=== PATIENT | male | born 1925 | race Caucasian/White ===

== ENCOUNTER 2016-04-29 20:47 | Emergency (ER) | payer MEDICAID, MEDICARE, OTHER ==
[2016-04-29 21:15] VITALS: BP 153/71
[2016-04-29] MEDS ORDERED: Lidocaine 1% with EPINEPHrine 1:100,000 20 ML MDV INJECT ONE (21:27)
--- NOTE | 2016-04-29 21:32 | EDM.PDOC ---
ED HPI HEAD INJURY - General Chief Complaint: Head Injury Stated Complaint: FELL IN [id number] [place] Time Seen by Provider: 04/29/16 21:03 Source of Information: Reports: Patient, Other ([facility]) History Limitations: Reports: No limitations - History of Present Illness INITIAL COMMENTS - FREE TEXT/NARRATIVE: The patient fell in the [employer] parking lot today. He has a laceration to his forehead. He had no LOC. He has no neck pain, back pain, chest pain, abdominal pain, hip pain or wrist pain. His tetanus is up to date. He is on plavix. Timing/Duration: Reports: Hour(s): (about 8pm tonight) Location: Reports: frontal (mid to left) Quality: Reports: sharp Severity: moderate Place of Occurrence: other ([employer]. He was walking around) Worsens with: none Associated Symptoms: Reports: headache. Denies: nausea/vomiting, loss of consciousness, dizziness - Related Data Allergies/ADRs: Allergies Allergy/AdvReac Type Severity Reaction Status Date / Time No Known Allergies Allergy Verified 04/29/16 20:58 Home Meds: Home Meds Aspirin [Halfprin] 81 mg PO DAILY 03/12/14 [History] Multivitamin [Multiple Vitamins] 1 each PO DAILY 03/12/14 [History] Simvastatin [Zocor] 10 mg PO DAILY 03/12/14 [History] Vitamin E Blend. 1 tab PO DAILY 03/12/14 [History] Abscorbic Acid 500 mg PO DAILY 01/26/16 [History] Clopidogrel [Plavix] 75 mg PO DAILY 01/26/16 [History] Fish Oil/DHA/EPA [Fish Oil 1,200 MG] 1 cap PO DAILY 01/26/16 [History] Iron 65 mg PO DAILY 01/26/16 [History] Tamsulosin [Flomax] 0.4 mg PO DAILY 03/11/16 [History] FLUoxetine [PROzac] 20 mg PO DAILY 04/01/16 [History] Metoprolol Succinate [Toprol XL 50mg] 25 mg PO DAILY 04/01/16 [History] Past Medical History HEENT History: Reports: Impaired vision Cardiovascular History: Reports: Hypertension Respiratory History: Reports: Other (see below) Other Respiratory History: pleural effusions x 2 in 2014 Genitourinary History: Reports: Other (see below) Other Genitourinary History: 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 Other Oncologic History: 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 - Past Surgical History Other HEENT Surgeries/Procedures: Dentures placement Other GI Surgeries/Procedures: Stomach surgery in 1950, unkown etiology Social & Family History - Family History Family Medical History: Noncontributory - Tobacco Use Smoking Status *Q: Former Smoker Years of Tobacco use: 15 Packs/Tins Daily: 1 Used Tobacco, but Quit: Yes Month Tobacco Last Used: 24 years ago Second Hand Smoke Exposure: No - Caffeine Use Caffeine Use: Reports: Coffee - Alcohol Use Days Per Week of Alcohol Use: 0 Number of Drinks Per Day: 1 Total Drinks Per Week: 0 - Recreational Drug Use Recreational Drug Use: No - Living Situation & Occupation Living situation: Reports: other (Lives in his own home.) Occupation: retired ED ROS GENERAL - Review of Systems Review Of Systems: See Below Constitutional: Reports: no symptoms HEENT: Reports: Other (2.5cm laceration to the mid left forehead) Respiratory: Reports: No Symptoms Cardiovascular: Reports: No symptoms Endocrine: Reports: no symptoms GI/Abdominal: Reports: No symptoms : Reports: no symptoms Musculoskeletal: Reports: other (Abrasion to the left knee) ED EXAM, HEAD INJURY - Physical Exam Exam: See Below Exam Limited By: No limitations General Appearance: alert, no apparent distress Head: other (2.5cm laceration to the mid/left forehead) Eyes: bilateral eye: EOMI Ears: normal external exam Nose: normal inspection Neck: non-tender, normal alignment, normal inspection Respiratory: no respiratory distress, lungs clear, normal breath sounds Cardiovascular: regular rate, rhythm, no edema, no murmur GI/Abdominal Exam (Abbreviated): soft, non tender, no organomegaly, no mass Back Exam: normal inspection Extremities: other (abrasion to the left knee) ED LACERATION/WOUND & JENNIFER PROC - Laceration/Wound Repair Face Lac/wound length in cm: 2.5 Appearance: subcutaneous, linear Anesthetic type: local Local anesthesia - Lidocaine (Xylocaine): 1% with epi Skin prep: saline Exploration/Debridement/Repair: wound explored, in a bloodless field, explored to base Closed with: sutures Suture size: 4-0 # of sutures: 5 Suture type: nylon, interrupted, simple Tetanus status addressed: Yes Complications: No Course - Vital Signs Last Recorded V/S: Last Vital Signs Temp 97.2 F 04/29/16 20:59 Pulse 62 04/29/16 20:59 Resp 16 04/29/16 20:59 BP 153/71 H 04/29/16 20:59 Pulse Ox 96 04/29/16 20:59 - Orders/Labs/Meds Orders: Active Orders 24 hr Category Date Time Status Head wo Cont [CT] Stat Exams 04/29/16 21:26 Taken Meds: Medications Discontinued Medications Generic Name Dose Route Start Last Admin Trade Name David PRN Reason Stop Dose Admin Lidocaine/Epinephrine 20 ml 04/29/16 21:27 Xylocaine 1% With Epinephrine 1:100,000 INJECT 04/29/16 21:28 ONETIME ONE - Re-Assessments/Exams Free Text/Narrative Re-Assessment/Exam: 04/29/16 21:[address] of his head and I will suture his forehead. 04/29/16 22:[address] shows no acute intracranial findings, atrophy and chronic periventricular deep white matter small vessel ischemic changes. Small scalp hematoma. I sutured his forehead. Departure - Departure Time of Disposition: 22:35 Disposition: Home, Self-Care 01 Condition: good Clinical Impression: Fall Qualifiers: Encounter type: initial encounter Qualified Code(s): W19.XXXA - Unspecified fall, initial encounter Head injury Qualifiers: Encounter type: initial encounter Qualified Code(s): S09.90XA - Unspecified injury of head, initial encounter Laceration of forehead Qualifiers: Encounter type: initial encounter Qualified Code(s): S01.81XA - Laceration without foreign body of other part of head, initial encounter Forms: ED Department Discharge Additional Instructions: Wash the wound with warm soapy water and apply antibiotic ointment after. Have the sutures removed in 1 week. Please return if you are worse. Look for any sign of infection such as redness, swelling, pain or drainage. - My Orders Last 24 Hours: My Active Orders 04/29/16 21:26 Head wo Cont [CT] Stat - Assessment/Plan Last 24 Hours: My Active Orders 04/29/16 21:26 Head wo Cont [CT] Stat
--- NOTE | 2016-04-30 09:50 | CT ---
Head CT Technique: Multiple axial sections through the brain were obtained. Intravenous contrast was not utilized. Comparison: Previous head CT study of 04/01/16. Findings: Ventricles along with basal cisterns and sulci over the convexities are moderately prominent. Mild diminished density noted within the periventricular white matter compatible with small vessel ischemic demyelination change. Several old lacunar infarcts are noted within the basal ganglia. No other abnormal parenchymal densities are seen. No evidence of intracranial hemorrhage. No midline shift or mass effect is seen. Atherosclerotic change noted within the vertebral vessels and carotid siphon. Mild soft tissue swelling seen within the frontal scalp. Bone window settings were reviewed which show no acute calvarial abnormality. Small air-fluid level seen within the sphenoid sinus as well as minimal mucosal thickening within the right maxillary sinus. Impression: 1. No acute intracranial abnormality is identified. Senescent change as described above. 2. Small air-fluid level within the sphenoid sinus which may represent retained secretions. Minimal mucosal thickening noted within the right maxillary sinus which is incidental. 3. Soft tissue swelling within the frontal scalp. No calvarial fracture is seen. Diagnostic code #2
== END 2016-04-29 22:45 | disposition home or self-care (01) ==
LOC: JD.ED 20:47
DX: S01.81XA Laceration without foreign body of other part of head, initial encounter (principal); S09.90XA Unspecified injury of head, initial encounter; W19.XXXA Unspecified fall, initial encounter; Z79.82 Long term (current) use of aspirin; Z79.02 Long term (current) use of antithrombotics/antiplatelets; Z79.899 Other long term (current) drug therapy; I10 Essential (primary) hypertension; Z85.528 Personal history of other malignant neoplasm of kidney; Z90.5 Acquired absence of kidney; Z87.891 Personal history of nicotine dependence
CPT/HCPCS: 12011; 70450; 70450-26; 99282-25; 99284-25